=== PATIENT | male | born 1955 | race Caucasian/White ===

== ENCOUNTER → 2017-09-26 | Day surgery (SDC) | payer MEDICARE, OTHER ==
[~2017-09-26] MED LIST: Dextrose 5%-0.45% NaCl 1,000 ML IV SCH; Midazolam 1 MG/ML 2 ML SDV IV ONE; Midazolam 1 MG/ML 2 ML SDV ONE; fentaNYL 100 MCG/2 ML SDV IV ONE; fentaNYL 100 MCG/2 ML SDV ONE
[2017-09-26 10:41] VITALS: BP 125/65
--- NOTE | 2017-09-26 12:11 | OR ---
DATE: 09/26/2017 PROCEDURE: Incomplete colonoscopy. INSTRUMENT USED: CF-H180AL Olympus video colonoscope, PCF-H180AL Olympus video colonoscope, Olympus GIF-Q180 panendoscope. PREMEDICATIONS: Fentanyl 125 mcg intravenous, Versed 4 mg intravenous, and nasal O2 cannula. The procedure was done under pulse oximetry, BP recording, and monitoring and evaluation advisor. INDICATION: Screening colonoscopic examination is done for detection of any polypoid lesions and removal, endoscopic hemostasis therapy if needed. DESCRIPTION OF PROCEDURE: Initial rectal exam was unremarkable. Rigid anoscopy was normal. The CF-H180AL Olympus colonoscope was passed with ease up to proximal sigmoid area where numerous scattered diverticula were noted along with significant deformity and stricture preventing further advancement of the instrument. The scope was withdrawn and replaced by PCF-H180AL Olympus colonoscope. The scope was passed with ease up to the distal descending colon where again numerous scattered diverticula were noted along with deformity preventing further advancement of the instrument. The scope was replaced by GIF- Q180 panendoscope which was passed up to distal descending colon, where again, significant deformity and stricture noted along with the diverticula. No bleeding was noted from any of the visualized areas. No vascular ectasia. No large isolated ulcerations seen. No evidence of diffuse inflammatory bowel disease in the form friability, contact bleeding, or ulcerations. No polyp or tumor mass identified. No bleeding was noted at the completion of examination. IMPRESSION: Diverticulosis. The patient tolerated the procedure well. [facility] /[id number]
== END | disposition home or self-care (01) ==
LOC: DL.ENDO 06:21
PROVIDERS: ATTEND Internal Medicine Gastroenterology
DX: Z12.11 Encounter for screening for malignant neoplasm of colon (principal); K57.30 Diverticulosis of large intestine without perforation or abscess without bleeding; I25.10 Atherosclerotic heart disease of native coronary artery without angina pectoris; I10 Essential (primary) hypertension; F41.1 Generalized anxiety disorder; E78.5 Hyperlipidemia, unspecified; E03.9 Hypothyroidism, unspecified; R73.9 Hyperglycemia, unspecified; Z90.49 Acquired absence of other specified parts of digestive tract; Z95.5 Presence of coronary angioplasty implant and graft; Z98.890 Other specified postprocedural states; Z98.52 Vasectomy status
CPT/HCPCS: G0121; J2250; J3010; J7042

== ENCOUNTER 2024-06-28 07:52 | Emergency (ER) | payer MEDICARE, OTHER ==
[2024-06-28 08:02] VITALS: BP 166/85; PULSE 66
== END 2024-06-28 09:13 | disposition home or self-care (01) ==
LOC: DL.ED 07:52
DX: U07.1 COVID-19 (principal); I10 Essential (primary) hypertension; E78.00 Pure hypercholesterolemia, unspecified; I25.10 Atherosclerotic heart disease of native coronary artery without angina pectoris; E03.9 Hypothyroidism, unspecified; Z79.82 Long term (current) use of aspirin; Z79.890 Hormone replacement therapy
CPT/HCPCS: 87804; 99284; U0002